=== PATIENT | male | born 1985 | race Caucasian/White ===

== ENCOUNTER 2021-05-18 12:24 | Emergency (ER) | payer MEDICAID ==
[~2021-05-18] VITALS: Ht 182.9 cm; Wt 108.9 kg
[2021-05-18 12:28] VITALS: BP 126/82
--- NOTE | 2021-05-18 12:37 | NUR ---
PATIENT AMBULATD TO BED 3.
--- NOTE | 2021-05-18 12:52 | NUR ---
DR HUNG AT BEDSIDE.
--- NOTE | 2021-05-18 12:52 | NUR ---
36 Y/O M C/O EPIGASTRIC PAIN 03/30 STARTED LAST NIGHT. HE FEELS FATIGUE. HAD DIARRHEA THIS MORNING. NKA OR HX.
[2021-05-18] MEDS ORDERED: ONDANSETRON 4 MG/2 ML VIAL IVP ONE (12:55)
[2021-05-18] MEDS ORDERED: NACL 0.9% 1,000 ML IV ONE (12:55)
--- NOTE | 2021-05-18 13:07 | NUR ---
18 G IV ESTABLISHED IN R AC. BLOOD WORK COLLECTED FROM IV AND HANDED TO [employer]
[2021-05-18 13:13] LABS: BASOPHILS % (AUTO) 0.1 % (0.0-2.0); EOSINOPHILS % (AUTO) 0.2 % (0.0-4.0); HEMATOCRIT 43.9 % (36-52); HEMOGLOBIN 15.3 g/dL (12.0-18.0); LYMPHOCYTES # (AUTO) 0.6 K/uL (2.0-11.5); LYMPHOCYTES % (AUTO) 5.5 % (20.5-51.1); MEAN CORPUSCULAR HEMOGLOBIN 32 pg (27-31); MEAN CORPUSCULAR HGB CONC 35 g/dL (33-37); MONOCYTES # (AUTO) 0.3 K/uL (0.8-1.0); MONOCYTES % (AUTO) 3.1 % (1.7-9.3); NEUTROPHILS # (AUTO) 9.3 K/uL (1.8-7.7); NEUTROPHILS % (AUTO) 91.1 % (42.2-75.2); PLATELET COUNT (AUTO) 249 K/uL (140-450); RED BLOOD CELL COUNT(AUTO) 4.77 MIL/uL (4.20-6.10); RED CELL DISTRIBUTION WIDTH 12.6 % (11.6-13.7); WHITE BLOOD COUNT (AUTO) 10.2 K/uL (4.8-10.8)
[2021-05-18 13:52] LABS: ANION GAP 10.4 (8-16); CARBON DIOXIDE 29.8 mmol/L (21-32); CREATININE 1.1 mg/dL (0.6-1.3); POTASSIUM 4.2 mmol/L (3.5-5.1)
[2021-05-18 13:55] LABS: ALBUMIN 3.8 g/dL (3.4-5.0); BILIRUBIN,DIRECT 0.1 mg/dL (0.0-0.3); MAGNESIUM 2.2 mg/dL (1.8-2.4); PHOSPHORUS 1.8 mg/dL (2.5-4.9); TOTAL BILIRUBIN 0.5 mg/dL (0.0-1.0)
[2021-05-18] MEDS ORDERED: ONDA-188 SL (14:46)
[2021-05-18 16:30] VITALS: BP 144/102
--- NOTE | 2021-05-18 16:31 | NUR ---
Patient discharged with v/s stable. Written and verbal after care instructions given and explained. Patient alert, oriented and verbalized understanding of instructions. Wheel Chair Assisted with steady gait. All questions addressed prior to discharge. ID band removed. Patient advised to follow up with PMD. Rx of ONDANESTRON given. Opportunity to ask questions provided and answered.
== END 2021-05-18 16:30 | disposition home or self-care (01) ==
LOC: MED 12:24
DX: S90.31XA Contusion of right foot, initial encounter (principal); R11.2 Nausea with vomiting, unspecified; R10.84 Generalized abdominal pain; F17.210 Nicotine dependence, cigarettes, uncomplicated; X58.XXXA Exposure to other specified factors, initial encounter; Y93.89 Activity, other specified; Y92.89 Other specified places as the place of occurrence of the external cause; Y99.8 Other external cause status
CPT/HCPCS: 36415; 73630; 80048; 80076; 81002; 83690; 83735; 84100; 85025; 96361; 96374; 99284; J2405; J7030

== ENCOUNTER 2022-03-23 11:24 | Emergency (ER) | payer MEDICAID ==
[~2022-03-23] VITALS: Ht 182.9 cm; Wt 114.3 kg
[~2022-03-23 11:24] MED LIST: ONDA-188 SL
[2022-03-23 11:28] VITALS: BP 147/97
--- NOTE | 2022-03-23 12:13 | NUR ---
Patient ambulated with steady gait to bed 1.
--- NOTE | 2022-03-23 12:34 | NUR ---
PT C/O RIGHT EAR PAIN X2 DAYS
[2022-03-23] MEDS ORDERED: IBUPROFEN 600 MG TAB PO ONE (12:40)
[2022-03-23] MEDS ORDERED: CIPR7.5S OT (12:46)
[2022-03-23] MEDS ORDERED: IBUP-2213 PO (12:46)
--- NOTE | 2022-03-23 13:07 | NUR ---
Patient discharged with v/s stable. Written and verbal after care instructions given and explained. Patient alert, oriented and verbalized understanding of instructions. Ambulatory with steady gait. All questions addressed prior to discharge. ID band removed. Patient advised to follow up with PMD. Rx of CIPRO, MOTRIN given. Patient educated on indication of medication including possible reaction and side effects. Opportunity to ask questions provided and answered.
== END 2022-03-23 13:07 | disposition home or self-care (01) ==
LOC: MED 11:24
DX: H60.91 Unspecified otitis externa, right ear (principal)
CPT/HCPCS: 99283